=== PATIENT | male | born 1965 | race American Indian/Alaskan Native ===

== ENCOUNTER 2018-11-13 20:02 | Inpatient (IN) | payer OTHER ==
[2018-11-13] MEDS ORDERED: NACL 0.9% 1000 ML 1,000 ML IV ONE ×2 (20:42→21:02)
[2018-11-13] MEDS ORDERED: PROTONIX IV ONE (21:02)
--- NOTE | 2018-11-13 21:09 | Emergency Department Report ---
ED GI Bleed HPI - General Chief complaint: GI Bleed Stated complaint: ABD PAIN CHEST PAIN SOB VOMITTING Time Seen by Provider: 11/13/18 21:01 Source: patient Mode of arrival: Ambulatory Limitations: No Limitations - History of Present Illness Initial comments: Mr. Han is a 53 yo male with hx of HTN and GI bleed requiring endoscopy at [facility] 5-6 years ago presents with severe sharp central abdominal pain radiating to right chest. Has had dark tarry stools since this morning. Takes BC powder twice a week for chronic headache. Chest pain occurs upon movement and exertion with lightheadedness and dyspnea. MD complaint: melena, other (dark tarry stools) -: This morning Location: epigastric Radiation: none Severity scale (0 -10): 10 Quality: sharp Consistency: constant Improves with: none Worsens with: none Context: history of GI bleed, other (no history of tobacco or alcohol use. He does use BC powder OTC med at least twice a week) Associated Symptoms: abdominal pain, malaise, shortness of breath, other (chest pain) - Related Data Allergies Allergy/AdvReac Type Severity Reaction Status Date / Time No Known Allergies Allergy Verified 01/02/16 20:27 ED Review of Systems ROS: Stated complaint: ABD PAIN CHEST PAIN SOB VOMITTING Other details as noted in HPI Comment: All other systems reviewed and negative Constitutional: malaise. denies: fever Respiratory: shortness of breath Cardiovascular: chest pain Gastrointestinal: abdominal pain ED Past Medical Hx - Past Medical History Previous Medical History?: Yes Hx Hypertension: Yes Additional medical history: stomach ulcer / back pain - Surgical History Additional Surgical History: left shoulder, abdominal surgery. 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 Absent: respiratory distress, wheezes, rales, rhonchi - Cardiovascular Cardiovascular Exam: Present: normal rhythm, tachycardia, normal heart sounds. Absent: systolic murmur, diastolic murmur, rubs, gallop - GI/Abdominal GI/Abdominal exam: Present: soft, normal bowel sounds. Absent: distended, tenderness, guarding, rebound - Rectal Rectal exam: Present: normal rectal tone, heme (+) stool, black stool, other (melena) - Extremities Exam Extremities exam: Present: normal inspection - Back Exam Back exam: Present: normal inspection - Neurological Exam Neurological exam: Present: alert, oriented X3 - Psychiatric Psychiatric exam: Present: normal affect, normal mood - Skin Skin exam: Present: warm, dry, intact, normal color. Absent: rash ED Course Vital Signs 11/13/18 11/13/18 11/13/18 20:31 20:39 20:56 Temperature 98.8 F 98.8 F Pulse Rate 138 H 140 H 129 H Respiratory 18 18 18 Rate Blood Pressure 154/105 154/106 Blood Pressure 176/128 [Left] O2 Sat by Pulse 100 100 99 Oximetry 11/13/18 11/13/18 11/13/18 21:00 21:16 21:30 Temperature Pulse Rate 155 H 102 H 112 H Respiratory 23 14 14 Rate Blood Pressure 176/128 174/129 168/107 Blood Pressure [Left] O2 Sat by Pulse 98 99 98 Oximetry 11/13/18 11/13/18 11/13/18 21:46 22:00 22:16 Temperature Pulse Rate 102 H 102 H 103 H Respiratory 16 16 15 Rate Blood Pressure 168/107 180/107 180/107 Blood Pressure [Left] O2 Sat by Pulse 99 99 98 Oximetry 11/13/18 11/13/18 11/13/18 22:30 22:46 23:00 Temperature Pulse Rate 130 H 101 H 105 H Respiratory 14 16 15 Rate Blood Pressure 180/107 180/107 180/107 Blood Pressure [Left] O2 Sat by Pulse 98 97 99 Oximetry 11/14/18 11/14/18 00:17 00:19 Temperature Pulse Rate 107 H Respiratory 14 Rate Blood Pressure 172/106 Blood Pressure [Left] O2 Sat by Pulse Oximetry - Reevaluation(s) Reevaluation #1: 11/13/18 22:27 After initial consultation, Mr. Han vomited 800 ml dark emesis, quickly filling emesis bag. Dr. Khan updated. Dr. Khan informed me watch for ivan hematemesis and large bowel movements. 11/13/18 22:34 ED Medical Decision Making - Lab Data Result diagrams: 11/13/18 21:02 11/13/18 21:02 - EKG Data 11/13/18 22:56 First EKG obtained 2014 Sinus tachycardia rate 140 beats a minute normal axis no ST elevation nonspecific T wave pattern no signs of ischemia 11/13/18 22:57 Second EKG obtained 2232 Sinus tachycardia rate 100 weeks normal axis normal intervals no T-wave changes from previous EKG - Radiology Data Radiology results: report reviewed likely chronic hydronephrosis on left side, with right and left renal calculus - Medical Decision Making Mr. Han presents with recurrent UBIB presumed to be caused by PUD. Extremely orthostatic and tachycardic. Dr. Khan GI specialist understood that Mr. Han is at risk for hemodynamic collapse. Consequently, Dr. Khan will arrange endoscopy first case in the morning. Hospitalist Dr. Roa is aware of patient's presentation. Two IV's placed. Protonix infusion with bolus initated. Has been hypertensive in the ED. Due to severe abdominal pain, CT obtained, no evidence of bowel performation or aortic abnormality, mild hydronephrosis seen, will need outpatient urology f/u Critical Care Time: Yes Critical care time in (mins) excluding proc time.: 40 Critical care attestation.: If time is entered above; I have spent that time in minutes in the direct care of this critically ill patient, excluding procedure time. 40 minutes of critical care time excluding procedures were used in the care of the patient. I was concerned for active hemorrhage severe tachycardia and pending cardiovascular collapse. Attention to the bedside immediately. I obtain history from both female companion caregiver and patient. I directed resuscitation. Ordered 2 IVs, IVF, T&C, protonix infusion and bolus. I requested outside records. Patient required multiple assessments and in terventions. I reviewed the electronic medical record. I spoke with consultants involved in the care of the patient. ED Disposition Clinical Impression: UGIB (upper gastrointestinal bleed) Disposition: OP ADMIT IP TO THIS HOSP Is pt being admited?: Yes Does the pt Need Aspirin: No Condition: Stable
[2018-11-13 21:16] LABS: Basophils % (Auto) 0.4 % (0.0-1.8); Hematocrit 33.6 % (35.5-45.6); Hemoglobin 11.2 gm/dl (11.8-15.2); Lymphocytes # (Auto) 2.7 K/mm3 (1.2-5.4); Lymphocytes % (Auto) 20.6 % (13.4-35.0); Mean Corpuscular HGB Conc 33 % (32-34); Mean Corpuscular Volume 91 fl (84-94); Monocytes # (Auto) 1.1 K/mm3 (0.0-0.8); Monocytes % (Auto) 8.3 % (0.0-7.3); Platelet Count 251 K/mm3 (140-440); Red Blood Count 3.67 M/mm3 (3.65-5.03)
[2018-11-13 21:36] LABS: Alanine Aminotransferase 17 units/L (7-56); Albumin 4.2 g/dL (3.9-5); BUN/Creatinine Ratio 35; Blood Urea Nitrogen 46 mg/dL (9-20); Calcium 9.6 mg/dL (8.4-10.2); Hemolysis Index 14
[2018-11-13] MEDS ORDERED: MORPHINE IV ONE (22:07)
[2018-11-13] MEDS ORDERED: ZOFRAN IV ONE (22:07)
[2018-11-13] MEDS ORDERED: AMBIEN PO PRN (22:35)
[2018-11-13] MEDS ORDERED: SODIUM CHLORIDE FLUSH SYRINGE 10 ML IV PRN (22:35)
[2018-11-13] MEDS ORDERED: NORMODYNE IV PRN (22:41)
--- NOTE | 2018-11-13 22:45 | Event Note ---
Date: 11/13/18 called for patient; has had 2 BM of melena earlier today, 1 in ER; currently getting fluids. NPO on PPI drip. Presentation consistent with UGIB, most likely PUD Fluid resuscitate, cont NPO and PPI drip, 2 large bore peripheral IV's. If hemodynamics worsen, or don't improve with aggressive fluid resuscitation, or patient with significant active clinical bleeding (significant hematemesis or multiple episodes of large amounts of melena) please call me and I will come in immediately for emergent endoscopy. Otherwise, patient is on for EGD first thing in the AM.
[2018-11-13] MEDS ORDERED: NACL 0.45% 500 ML IV SCH (23:00)
[2018-11-13] MEDS ORDERED: NACL 0.9% 1000 ML 1,000 ML IV SCH (23:00)
--- NOTE | 2018-11-13 23:20 | History and Physical Report ---
History of Present Illness Date of examination: 11/13/18 Date of admission: 11/13/18 23:06 Chief complaint: Passing bloody stool and vomiting blood History of present illness: Patient is a 53-year-old man with a history of GI bleed who presented to the ED on account of 1 week history of passage of black tarry stool. Today, he started having bloody emesis. He has associated generalized abdominal pain, headaches, lightheadedness, pleuritic chest pain, diaphoresis, palpitation, shortness of breath and chills without fever. No constipation, diarrhea, dysuria or frequency. No leg swelling, orthopnea or PND. In the ED, GI was consulted and he recommended EGD in a.m. He also stated that he can called for emergency EGD if patient's condition deteriorates Past History Past Medical History: hypertension, other (GI bleed, exact cause unknown) Past Surgical History: Other (right rotator cuff surgery) Social history: other (patient admits to occasional alcohol use but denies tobacco or illicit drug use) Family history: other (reviewed and noncontributory) Medications and Allergies Allergies Allergy/AdvReac Type Severity Reaction Status Date / Time No Known Allergies Allergy Verified 01/02/16 20:27 Active Meds: Active Medications Acetaminophen (Tylenol) 650 mg PO Q4H PRN PRN Reason: Pain MILD(1-3)/Fever >100.5/SALOMON Amlodipine Besylate (Norvasc) 10 mg PO QDAY GALE Carvedilol (Coreg) 25 mg PO BID GALE Sodium Chloride (Nacl 0.9% 1000 Ml) 1,000 mls @ 250 mls/hr IV ONCE ONE Stop: 11/14/18 00:41 Pantoprazole Sodium 80 mg/ (Sodium Chloride) 100 mls @ 10 mls/hr IV DIRECT GALE Sodium Chloride (Nacl 0.45%) 500 mls @ 75 mls/hr IV DIRECT GALE Labetalol HCl (Normodyne) 10 mg IV Q4H PRN PRN Reason: Blood Pressure Morphine Sulfate (Morphine) 2 mg IV Q4H PRN PRN Reason: Pain, Moderate (4-6) Ondansetron HCl (Zofran) 4 mg IV Q8H PRN PRN Reason: Nausea And Vomiting Sodium Chloride (Sodium Chloride Flush Syringe 10 Ml) 10 ml IV BID GALE Sodium Chloride (Sodium Chloride Flush Syringe 10 Ml) 10 ml IV PRN PRN PRN Reason: LINE FLUSH Zolpidem Tartrate (Ambien) 5 mg PO QHS PRN PRN Reason: Insomnia Review of Systems All systems: negative (except as documented in the HPI, all other systems were reviewed and negative) Exam - Constitutional Vitals: Temp Pulse Resp BP Pulse Ox 98.8 F 129 H 18 176/128 99 11/13/18 20:39 11/13/18 20:56 11/13/18 20:56 11/13/18 20:56 11/13/18 20:56 General appearance: Present: no acute distress, obese - EENT Eyes: Present: PERRL, EOM intact ENT: hearing intact, clear oral mucosa - Neck Neck: Present: supple, normal ROM - Respiratory Respiratory effort: normal Respiratory: bilateral: CTA - Cardiovascular Rhythm: regular (with tachycardia) Heart Sounds: Present: S1 & S2. Absent: rub, click - Extremities Extremities: No edema Peripheral Pulses: within normal limits - Abdominal General gastrointestinal: Present: soft, non-tender, non-distended, normal bowel sounds Male genitourinary: Present: deferred - Integumentary Integumentary: Present: clear, warm, dry - Musculoskeletal Musculoskeletal: gait normal, strength equal bilaterally - Psychiatric Psychiatric: appropriate mood/affect, intact judgment & insight - Neurologic Neurologic: CNII-XII intact, moves all extremities Results - Labs CBC & Chem 7: 11/13/18 21:02 11/13/18 21:02 Labs: Laboratory Last Values WBC 13.3 K/mm3 (4.5-11.0) H 11/13/18 21:02 RBC 3.67 M/mm3 (3.65-5.03) 11/13/18 21:02 Hgb 11.2 gm/dl (11.8-15.2) L 11/13/18 21:02 Hct 33.6 % (35.5-45.6) L 11/13/18 21:02 MCV 91 fl (84-94) 11/13/18 21:02 MCH 30 pg (28-32) 11/13/18 21:02 MCHC 33 % (32-34) 11/13/18 21:02 RDW 15.0 % (13.2-15.2) 11/13/18 21:02 Plt Count 251 K/mm3 (140-440) 11/13/18 21:02 Lymph % (Auto) 20.6 % (13.4-35.0) 11/13/18 21:02 [place] % (Auto) 8.3 % (0.0-7.3) H 11/13/18 21:02 Eos % (Auto) 0.0 % (0.0-4.3) 11/13/18 21:02 Baso % (Auto) 0.4 % (0.0-1.8) 11/13/18 21:02 Lymph # 2.7 K/mm3 (1.2-5.4) 11/13/18 21:02 [place] # 1.1 K/mm3 (0.0-0.8) H 11/13/18 21:02 Eos # 0.0 K/mm3 (0.0-0.4) 11/13/18 21:02 Baso # 0.0 K/mm3 (0.0-0.1) 11/13/18 21:02 Seg Neutrophils % 70.7 % (40.0-70.0) H 11/13/18 21:02 Seg Neutrophils # 9.4 K/mm3 (1.8-7.7) H 11/13/18 21:02 Sodium 144 mmol/L (137-145) 11/13/18 21:02 Potassium 4.4 mmol/L (3.6-5.0) 11/13/18 21:02 Chloride 109.0 mmol/L (98-107) H 11/13/18 21:02 Carbon Dioxide 23 mmol/L (22-30) 11/13/18 21:02 Anion Gap 16 mmol/L 11/13/18 21:02 BUN 46 mg/dL (9-20) H 11/13/18 21:02 Creatinine 1.3 mg/dL (0.8-1.5) 11/13/18 21:02 Estimated GFR > 60 ml/min 11/13/18 21:02 BUN/Creatinine Ratio 35 % 11/13/18 21:02 Glucose 138 mg/dL (75-100) H 11/13/18 21:02 POC Glucose 144 (70-105) H 11/13/18 21:00 Calcium 9.6 mg/dL (8.4-10.2) 11/13/18 21:02 Total Bilirubin 0.70 mg/dL (0.1-1.2) 11/13/18 21:02 AST 18 units/L (5-40) 11/13/18 21:02 ALT 17 units/L (7-56) 11/13/18 21:02 Alkaline Phosphatase 53 units/L (35-129) 11/13/18 21:02 Total Protein 7.1 g/dL (6.3-8.2) 11/13/18 21:02 Albumin 4.2 g/dL (3.9-5) 11/13/18 21:02 Albumin/Globulin Ratio 1.4 % 11/13/18 21:02 Lipase 30 units/L (13-60) 11/13/18 21:02 Assessment and Plan Assessment and plan: Upper GI bleed -On IV Protonix drip -H/H currently stable, will monitor every 6 hours -CT abdomen/pelvis pending -GI planning for EGD in a.m. Hypertension -Uncontrolled -On antihypertensives, will monitor SIRS, probably due to noninfectious cause -Urinalysis pending Hyperglycemia -We'll check hemoglobin A1c level DVT prophylaxis with SCD Disposition: Patient will be admitted to the stepdown unit. Discharge will depend on clinical course Time spent: 38 minutes
--- NOTE | 2018-11-13 23:54 | Cat Scan Report ---
PROCEDURE: CT ABDOMEN PELVIS W CON TECHNIQUE: Computerized axial tomography of the abdomen and pelvis was performed after the IV inject ion of iodinated nonionic contrast. CT DOSE LENGTH PRODUCT: mGycm HISTORY: epigastric pain UGIB COMPARISONS: None . FINDINGS: Liver, spleen, pancreas and bilateral adrenal glands are within normal limits. Multiple calculi are n oted in bilateral kidneys. Largest calculus in the right kidney measures 10 mm located in the upper p ortion without obstructive uropathy. Multiple cystic lesions are noted in bilateral kidneys largest m easuring 17 mm located in the midportion. 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 A 1 2 mm x 11 mm calculus is noted at the pelvoureteral junction of lower moiety with mild degree hydrone phrosis of lower collecting system. There is no duplication of the left ureter. Left ureter is of nor mal caliber. Urinary bladder is partially filled with normal outlines. Aorta is of normal caliber. Th ere is no free fluid or free air. Gallbladder is unremarkable. Small bowel loops are within normal li mits. Appendix is normal. There is spondylolysis of L5 with minimal degree spondylolisthesis at L5-S1 measuring about 1 to 2 mm. Vertebral height is normal. 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 An obstructive calculus is no marcio at the pelvo-ureteral junction of lower collecting system resulting in hydronephrosis of the lowe r collecting system. Multiple nonobstructive bilateral renal calculi L5 spondylolysis with minimal spondylolisthesis at L5-S1 This document is electronically signed by Rocco Rebollar MD., November 13 2018 11:52:47 PM ET
[2018-11-14] MEDS: COREG PO SCH ×3 (00:19→21:38)
[2018-11-14] MEDS: NORVASC PO SCH ×2 (00:36→21:38)
[2018-11-14] MEDS: MORPHINE IV PRN ×3 (01:34→16:10)
[2018-11-14] MEDS: ZOFRAN IV PRN ×2 (04:06→19:47)
[2018-11-14 06:06] LABS: Hematocrit 25.2 % (35.5-45.6); Hemoglobin 8.6 gm/dl (11.8-15.2); Mean Corpuscular HGB Conc 34 % (32-34); Mean Corpuscular Volume 90 fl (84-94); Platelet Count 175 K/mm3 (140-440); Red Blood Count 2.79 M/mm3 (3.65-5.03); Red Cell Distribution Width 15.1 % (13.2-15.2)
[2018-11-14] MEDS ORDERED: WATER FOR IRRIG STERILE IR ONE (06:50)
[2018-11-14] MEDS ORDERED: DIPRIVAN 10 MG/ML IV ONE ×2 (07:30)
[2018-11-14] MEDS ORDERED: XYLOCAINE 2% INFILTRATI ONE (07:30)
--- NOTE | 2018-11-14 08:02 | Gastroenterology Consultation ---
History of Present Illness - Reason for Consult Consult date: 11/14/18 GI Bleed Requesting physician: DENISE HOWARD - History of Present Illness Mr. Han is a pleasant 53 yo male with history of upper GI bleed a few years ago (he is not sure of the etiology of the bleed, just that they did endoscopy and "fixed a hole in my stomach that was bleeding"). Patient reports having black stool for the last few days, with 3 episodes of melena last night. He reported fatigue and weakness associated with this. Also reports few days of epigastric abdominal pain that is moderate, intermittent, lasts for hours, radiates to the entire abdomen, may be worse with eating, be tter with nothing, associated with weakness fatigue and melena and SOB and vomiting. Not improving yet. He reports using routinely OTC NSAIDs. Medication list reviewed and updated and listed below Past History Past Medical History: hypertension, other (GI bleed, exact cause unknown) Past Surgical History: Other (right rotator cuff surgery) Social history: other (patient admits to occasional alcohol use but denies tobacco or illicit drug use) Family history: other (no FH gastric ulcers or gastric malignancy or GI bleeding) Medications and Allergies Allergies Allergy/AdvReac Type Severity Reaction Status Date / Time codeine Allergy Mild Itching Unverified 11/14/18 08:02 Active Meds: Active Medications Acetaminophen (Tylenol) 650 mg PO Q4H PRN PRN Reason: Pain MILD(1-3)/Fever >100.5/SALOMON Amlodipine Besylate (Norvasc) 10 mg PO QDAY@2200 [facility] Last Admin: 11/14/18 00:36 Dose: 10 mg Documented by: Carvedilol (Coreg) 25 mg PO BID [facility] Last Admin: 11/14/18 00:19 Dose: 25 mg Documented by: Pantoprazole Sodium 80 mg/ (Sodium Chloride) 100 mls @ 10 mls/hr IV DIRECT [facility] Sodium Chloride (Nacl 0.9% 1000 Ml) 1,000 mls @ 50 mls/hr IV DIRECT [facility] Labetalol HCl (Normodyne) 10 mg IV Q4H PRN PRN Reason: Blood Pressure Morphine Sulfate (Morphine) 2 mg IV Q4H PRN PRN Reason: Pain, Moderate (4-6) Last Admin: 11/14/18 06:14 Dose: 2 mg Documented by: Ondansetron HCl (Zofran) 4 mg IV Q8H PRN PRN Reason: Nausea And Vomiting Last Admin: 11/14/18 04:06 Dose: 4 mg Documented by: Sodium Chloride (Sodium Chloride Flush Syringe 10 Ml) 10 ml IV BID GALE Sodium Chloride (Sodium Chloride Flush Syringe 10 Ml) 10 ml IV PRN PRN PRN Reason: LINE FLUSH Zolpidem Tartrate (Ambien) 5 mg PO QHS PRN PRN Reason: Insomnia Review of Systems - Review of Systems All systems: negative (10 systems reviewed and neg except as listed above in the HPI) Exam - Constitutional Vital Signs: Temp Pulse Resp BP Pulse Ox 98.5 F 79 13 136/87 16 L 11/14/18 07:25 11/14/18 07:25 11/14/18 07:25 11/14/18 07:25 11/14/18 07:25 General appearance: no acute distress - EENT Eyes: PERRL ENT: hearing intact - Neck Neck: supple - Respiratory Respiratory effort: normal Respiratory: bilateral: CTA - Cardiovascular Rhythm: regular Heart Sounds: Present: S1 & S2 - Gastrointestinal General gastrointestinal: Present: soft, normal bowel sounds Rectal Exam: deferred - Integumentary Integumentary: Present: warm, dry - Musculoskeletal Musculoskeletal: normal - Neurologic Neurological: alert and oriented x3 - Psychiatric Psychiatric: appropriate mood/affect - Labs CBC & Chem 7: 11/14/18 04:44 11/13/18 21:02 Lab Results: Laboratory Results - last 24 hr 11/13/18 11/13/18 11/13/18 21:00 21:02 21:02 WBC 13.3 H RBC 3.67 Hgb 11.2 L Hct 33.6 L MCV 91 MCH 30 MCHC 33 RDW 15.0 Plt Count 251 Lymph % (Auto) 20.6 [place] % (Auto) 8.3 H Eos % (Auto) 0.0 Baso % (Auto) 0.4 Lymph # 2.7 [place] # 1.1 H Eos # 0.0 Baso # 0.0 Seg Neutrophils % 70.7 H Seg Neutrophils # 9.4 H Sodium 144 Potassium 4.4 Chloride 109.0 H Carbon Dioxide 23 Anion Gap 16 BUN 46 H Creatinine 1.3 Estimated GFR > 60 BUN/Creatinine Ratio 35 Glucose 138 H POC Glucose 144 H Hemoglobin A1c Calcium 9.6 Total Bilirubin 0.70 AST 18 ALT 17 Alkaline Phosphatase 53 Total Protein 7.1 Albumin 4.2 Albumin/Globulin Ratio 1.4 Lipase 30 11/14/18 11/14/18 04:44 04:44 WBC 10.1 RBC 2.79 L Hgb 8.6 L Hct 25.2 L D MCV 90 MCH 31 MCHC 34 RDW 15.1 Plt Count 175 Lymph % (Auto) [place] % (Auto) Eos % (Auto) Baso % (Auto) Lymph # [place] # Eos # Baso # Seg Neutrophils % Seg Neutrophils # Sodium Potassium Chloride Carbon Dioxide Anion Gap BUN Creatinine Estimated GFR BUN/Creatinine Ratio Glucose POC Glucose Hemoglobin A1c 5.2 Calcium Total Bilirubin AST ALT Alkaline Phosphatase Total Protein Albumin Albumin/Globulin Ratio Lipase Assessment and Plan Regarding the problem list below, patient at high risk for PUD and active upper GI bleed, therefore urgent upper endoscopy is indicated and will be performed, continue PPI drip and NPO status until final recommendations based upon EGD results. Full Differential diagnosis includes gastric or duodenal ulcer, malignancy, AVM, Dieulafoy, etc. - Patient Problems (1) UGIB (upper gastrointestinal bleed) Current Visit: Yes Status: Acute (2) Melena Current Visit: Yes Status: Acute (3) Gastrointestinal hemorrhage with melena Current Visit: Yes Status: Acute (4) History of peptic ulcer disease Current Visit: Yes Status: Acute
--- NOTE | 2018-11-14 08:16 | Operative Report ---
Operative Report Operative Report: DATE OF SERVICE: 11/14/2018 SURGEON: Clifford Khan MD EGD with biopsy and endoclip placement REPORT PREOPERATIVE DIAGNOSIS and POSTOPERATIVE DIAGNOSIS: upper GI bleed, melena ESTIMATED BLOOD LOSS: minimal DESCRIPTION OF PROCEDURE: A high-resolution EGD scope was passed through the oropharynx, esophagus, stomach, and second portion of duodenum. The scope was carefully withdrawn. Retroflexion was performed in the stomach. At the end of the procedure, the scope was cleaned using normal technique. Vital signs monitored continuously throughout. SEDATION: Provided by Anesthesiology Services. COMPLICATIONS: None. FINDINGS: * Normal duodenal * 2 gastric ulcers in the incisura. One was superficial, small (3mm) and clean based. The second was moderately cratered, about 8mm in diameter, and a red raised lesion was present suspicious for a visible vessel. Therefore given the high risk lesion the decision was made to place endoclips to close the ulcer and decrease the risk for rebleeding. 2 Clips were successfully placed over the ulcer to close it. * Very small amount of old heme present in the stomach. * Biopsies were taken to rule out H. Pylori infection. A total of 6 biopsies were taken, 2 from the antrum, 1 from the incisura, 2 from the body. * Z line was irregular and located at 42cm from the incisors * Remainder of the exam was normal RECOMMENDATIONS: * Complete 48 hours of PPI drip, and then as long as no more bleeding and Hgb stable please transition to twice daily oral PPI (such as protonix 40mg PO twice daily) and discharge with outpatient followup and repeat EGD 6 weeks to ensure healing of the ulcer * Avoid all NSAIDs in the future * Follow up pathology results (sensitivity of biopsy for HP in the setting of recent GI bleed is decreased, so may need secondary testing to confirm HP negative at the follow up office visit) * Start on clears today, by dinnertime if Hgb stable and no overt bleeding can begin to advance diet as tolerated. * Please call back for major (over 2g) drop in Hgb or significant overt GI bleeding
--- NOTE | 2018-11-14 08:46 | Anesthesia Consultation ---
Anesthesia Consult and Med Hx Date of service: 11/14/18 - Airway Anesthetic Teeth Evaluation: Good ROM Head & Neck: Adequate Mental/Hyoid Distance: Adequate Mallampati Class: Class II Intubation Access Assessment: Probably Good - Pulmonary Exam CTA: Yes - Cardiac Exam Cardiac Exam: RRR - Pre-Operative Health Status ASA Pre-Surgery Classification: ASA3 Proposed Anesthetic Plan: MAC - Pulmonary Hx Smoking: No Hx Asthma: No COPD: No Hx Pneumonia: Yes Hx Sleep Apnea: Yes (snoring) - Cardiovascular System Hx Hypertension: Yes Hx Heart Attack/AMI: No Hx Cardia Arrhythmia: No - Central Nervous System Hx Neuromuscular Disorder: No CVA: No Hx Psychiatric Problems: No - Gastrointestinal Hx Gastroesophageal Reflux Disease: No - Endocrine Hx End Stage Renal Disease: No Hx Liver Disease: No Hx Insulin Dependent Diabetes: No Hx Non-Insulin Dependent Diabetes: No Hx Thyroid Disease: No - Hematic Hx Anemia: Yes Hx Sickle Cell Disease: No - Other Systems Hx Obesity: Yes - Additional Comments Anesthesia Medical History Comments: No GAC, No FHAC
--- NOTE | 2018-11-14 08:46 | Anesthesia Day of Surgery ---
Anesthesia Day of Surgery - Day of Surgery Patient Examined: Yes Patient H&P Reviewed: Yes Patient is NPO: Yes Beta Blockers: No (n/a) Cardiac Clearance: No (n/a) Pulmonary Clearance: No (n/a)
[2018-11-14] MEDS: TYLENOL PO PRN ×2 (09:09→21:35)
[2018-11-14 09:10] LABS: Hematocrit 25.6 % (35.5-45.6); Hemoglobin 8.5 gm/dl (11.8-15.2)
[2018-11-14 09:59] LABS: Bacteria,Urine 1+ /HPF (Negative); Bilirubin,Urine NEG (Negative); Blood,Urine MOD (Negative); Color,Urine Straw (Yellow); Mucus,Urine FEW /HPF; Protein,Urine <15 mg/dL mg/dL (Negative); Urobilinogen,Urine < 2.0 mg/dL (<2.0)
[2018-11-14] MEDS: PROTONIX 80 MG in NACL 0.9% 100 ML IV SCH ×2 (10:37→22:14)
[2018-11-14] MEDS ORDERED: NACL 0.9% 1000 ML 1,000 ML ONE (11:06)
[2018-11-14] MEDS: NACL 0.9% 1000 ML 1,000 ML IV SCH (13:11)
--- NOTE | 2018-11-14 15:39 | Progress Note ---
Assessment and Plan Patient is a 53-year-old man with a history of GI bleed who presented to the ED on account of 1 week history of passage of black tarry stool. Today, he started having bloody emesis. He has associated generalized abdominal pain, headaches, lightheadedness, pleuritic chest pain, diaphoresis, palpitation, shortness of breath and chills without fever. No constipation, diarrhea, dysuria or frequency. No leg swelling, orthopnea or PND. In the ED, GI was consulted and he recommended EGD. Patient remains hemodynamically stable Upper GI bleed - NPO -On IV Protonix drip -H/H q 6 hrs -GI planning for EGD Renal calculi Pelvic ureteric junction obstruction Also Multiple nonsbstructing renal calculi Duplicate collecting system Urology consult Hydronephrosis of the lower pole -secondary to ureteric calculi Hypertension -Uncontrolled -On antihypertensives, - will monitor SIRS, probably due to noninfectious cause -Urinalysis pending UTI Urine Cx Commence pt in Rocephine imperically Hyperglycemia - A1c 5.2 DVT prophylaxis with SCD Subjective Date of service: 11/14/18 Principal diagnosis: UGI bleeding, SIRS, HTN Interval history: Pt seen and examined. Still having dark stool. No abdominal pain. Objective - Exam Narrative Exam: Constitutional: Well-nourished well-developed. In no distress Head: Normocephalic atraumatic Eyes: Pupils are equal round and reactive to light Nose: No enlarged turbinates, no septal deviation. Mouth: Moist mucous membranes. Neck: Supple no thyromegaly. No bruit. No JVD Heart: Regular rate and rhythm, S1-S2 normal. No rubs murmurs or gallop Lungs: Clear to auscultation bilaterally. no rales or rhonchi Abdomen: Soft, nontender. Bowel sound are present. Extremities: No edema, no cyanosis, no clubbing. Neuro: Alert oriented Oriented x3. No focal sensory or motor deficit. Skin: No rashes or hyperpigmented spots Musculoskeletal system: No joint pain or swelling Hematological: No petechia or subcutanous hemorrhages. Immunological: No multiple septic spots on the skin Lymphatic: No generalized lymphadenopathy Psychiatry: Euthymic. Calm. - Constitutional Vitals: Vital Signs - 12hr 11/14/18 11/14/18 11/14/18 03:40 03:50 04:00 Temperature 98.4 F Pulse Rate 73 75 71 Pulse Rate [ From Monitor] Respiratory 14 14 15 Rate Blood Pressure 153/87 153/87 153/87 O2 Sat by Pulse 97 95 98 Oximetry 11/14/18 11/14/18 11/14/18 04:10 04:20 04:30 Temperature Pulse Rate 73 73 81 Pulse Rate [ From Monitor] Respiratory 13 12 18 Rate Blood Pressure 113/62 113/62 113/62 O2 Sat by Pulse 98 96 98 Oximetry 11/14/18 11/14/18 11/14/18 04:40 04:50 05:00 Temperature Pulse Rate 77 73 73 Pulse Rate [ From Monitor] Respiratory 12 13 13 Rate Blood Pressure 113/62 113/62 122/71 O2 Sat by Pulse 97 96 98 Oximetry 11/14/18 11/14/18 11/14/18 05:10 05:20 05:30 Temperature Pulse Rate 81 78 76 Pulse Rate [ From Monitor] Respiratory 14 13 12 Rate Blood Pressure 122/71 122/71 122/71 O2 Sat by Pulse 96 95 97 Oximetry 11/14/18 11/14/18 11/14/18 05:40 05:50 06:00 Temperature Pulse Rate 80 70 76 Pulse Rate [ From Monitor] Respiratory 14 12 13 Rate Blood Pressure 122/71 122/71 122/71 O2 Sat by Pulse 98 97 98 Oximetry 11/14/18 11/14/18 11/14/18 06:10 06:20 06:30 Temperature Pulse Rate 77 84 81 Pulse Rate [ From Monitor] Respiratory 14 14 12 Rate Blood Pressure 121/77 121/77 121/77 O2 Sat by Pulse 98 96 96 Oximetry 11/14/18 11/14/18 11/14/18 06:40 06:50 07:00 Temperature Pulse Rate 69 70 74 Pulse Rate [ From Monitor] Respiratory 13 14 13 Rate Blood Pressure 121/77 121/77 125/92 O2 Sat by Pulse 96 97 100 Oximetry 11/14/18 11/14/18 11/14/18 07:21 07:25 07:59 Temperature 98.5 F 98.5 F 98.9 F Pulse Rate 79 79 82 Pulse Rate [ From Monitor] Respiratory 13 14 Rate Blood Pressure 136/87 136/87 103/51 O2 Sat by Pulse 16 L 16 L 99 Oximetry 11/14/18 11/14/1819 08:00 08:14 08:29 Temperature 98.6 F Pulse Rate 82 88 Pulse Rate [ 70 From Monitor] Respiratory 13 13 10 L Rate Blood Pressure 109/61 115/70 O2 Sat by Pulse 99 96 98 Oximetry 11/14/18 11/14/18 11/14/18 08:46 08:50 09:00 Temperature Pulse Rate 76 74 72 Pulse Rate [ From Monitor] Respiratory 17 14 19 Rate Blood Pressure 109/73 109/73 118/68 O2 Sat by Pulse 99 97 99 Oximetry 11/14/18 11/14/18 11/14/18 09:10 09:20 09:30 Temperature Pulse Rate 78 Pulse Rate [ From Monitor] Respiratory 16 Rate Blood Pressure 125/92 125/92 125/92 O2 Sat by Pulse 99 99 100 Oximetry 11/14/18 11/14/18 11/14/18 09:40 09:50 10:00 Temperature Pulse Rate 87 Pulse Rate [ From Monitor] Respiratory Rate Blood Pressure 125/92 125/92 130/79 O2 Sat by Pulse 97 99 99 Oximetry 11/14/18 11/14/18 11/14/18 10:10 10:20 10:30 Temperature Pulse Rate Pulse Rate [ From Monitor] Respiratory Rate Blood Pressure 130/79 130/79 130/79 O2 Sat by Pulse 100 100 100 Oximetry 11/14/18 11/14/18 11/14/18 10:40 10:50 11:00 Temperature Pulse Rate Pulse Rate [ From Monitor] Respiratory Rate Blood Pressure 130/79 130/79 119/76 O2 Sat by Pulse 98 98 99 Oximetry 11/14/18 11/14/18 11/14/18 11:10 11:20 11:30 Temperature Pulse Rate Pulse Rate [ From Monitor] Respiratory Rate Blood Pressure 119/76 119/76 119/76 O2 Sat by Pulse 96 97 100 Oximetry 11/14/18 11/14/18 11/14/18 11:40 11:50 12:00 Temperature 98.5 F Pulse Rate Pulse Rate [ 71 From Monitor] Respiratory 11 L Rate Blood Pressure 119/76 119/76 119/76 O2 Sat by Pulse 98 100 100 Oximetry 11/14/18 11/14/18 11/14/18 12:10 12:20 12:30 Temperature Pulse Rate Pulse Rate [ From Monitor] Respiratory Rate Blood Pressure 127/75 127/75 127/75 O2 Sat by Pulse 100 98 99 Oximetry 11/14/18 11/14/18 11/14/18 12:40 12:50 13:00 Temperature Pulse Rate 87 69 64 Pulse Rate [ From Monitor] Respiratory 16 14 13 Rate Blood Pressure 127/75 127/75 116/67 O2 Sat by Pulse 97 97 97 Oximetry 11/14/18 11/14/18 11/14/18 13:10 13:20 13:30 Temperature Pulse Rate 76 69 67 Pulse Rate [ From Monitor] Respiratory 14 14 14 Rate Blood Pressure 116/67 116/67 116/67 O2 Sat by Pulse 98 100 98 Oximetry 11/14/18 11/14/18 11/14/18 13:40 13:50 14:00 Temperature Pulse Rate 65 70 70 Pulse Rate [ From Monitor] Respiratory 15 12 15 Rate Blood Pressure 116/67 116/67 127/76 O2 Sat by Pulse 98 100 98 Oximetry 11/14/18 14:10 Temperature Pulse Rate 70 Pulse Rate [ From Monitor] Respiratory 15 Rate Blood Pressure 127/76 O2 Sat by Pulse 100 Oximetry - Labs CBC & Chem 7: 11/14/18 08:51 11/13/18 21:02 Labs: Abnormal lab results 11/13/18 11/13/18 11/13/18 Range/Units 21:00 21:02 21:02 WBC 13.3 H (4.5-11.0) K/mm3 RBC (3.65-5.03) M/mm3 Hgb 11.2 L (11.8-15.2) gm/dl Hct 33.6 L (35.5-45.6) % [place] % (Auto) 8.3 H (0.0-7.3) % [place] # 1.1 H (0.0-0.8) K/mm3 Seg Neutrophils % 70.7 H (40.0-70.0) % Seg Neutrophils # 9.4 H (1.8-7.7) K/mm3 Chloride 109.0 H (98-107) mmol/L BUN 46 H (9-20) mg/dL Glucose 138 H (75-100) mg/dL POC Glucose 144 H (70-105) Urine WBC (Auto) (0.0-6.0) /HPF 11/14/18 11/14/18 11/14/18 Range/Units 04:44 08:51 09:25 WBC (4.5-11.0) K/mm3 RBC 2.79 L (3.65-5.03) M/mm3 Hgb 8.6 L 8.5 L (11.8-15.2) gm/dl Hct 25.2 L D 25.6 L (35.5-45.6) % [place] % (Auto) (0.0-7.3) % [place] # (0.0-0.8) K/mm3 Seg Neutrophils % (40.0-70.0) % Seg Neutrophils # (1.8-7.7) K/mm3 Chloride (98-107) mmol/L BUN (9-20) mg/dL Glucose (75-100) mg/dL POC Glucose (70-105) Urine WBC (Auto) 15.0 H (0.0-6.0) /HPF
[2018-11-14] MEDS: SODIUM CHLORIDE FLUSH SYRINGE 10 ML IV SCH (16:11)
--- NOTE | 2018-11-14 18:19 | Progress Note ---
Assessment and Plan dictated rec perc when medically stable large stone other option is stent spoke with IR severe anemia Subjective Date of service: 11/14/18 Principal diagnosis: UGI bleeding, SIRS, HTN Objective - Constitutional Vitals: Vital Signs - 12hr 11/14/18 11/14/18 11/14/18 06:20 06:30 06:40 Temperature Pulse Rate 84 81 69 Pulse Rate [ From Monitor] Respiratory 14 12 13 Rate Blood Pressure 121/77 121/77 121/77 O2 Sat by Pulse 96 96 96 Oximetry 11/14/18 11/14/18 11/14/18 06:50 07:00 07:21 Temperature 98.5 F Pulse Rate 70 74 79 Pulse Rate [ From Monitor] Respiratory 14 13 Rate Blood Pressure 121/77 125/92 136/87 O2 Sat by Pulse 97 100 16 L Oximetry 11/14/18 11/14/18 11/14/18 07:25 07:59 08:00 Temperature 98.5 F 98.9 F 98.6 F Pulse Rate 79 82 Pulse Rate [ 70 From Monitor] Respiratory 13 14 13 Rate Blood Pressure 136/87 103/51 O2 Sat by Pulse 16 L 99 99 Oximetry 11/14/18 11/14/18 11/14/18 08:14 08:29 08:46 Temperature Pulse Rate 82 88 76 Pulse Rate [ From Monitor] Respiratory 13 10 L 17 Rate Blood Pressure 109/61 115/70 109/73 O2 Sat by Pulse 96 98 99 Oximetry 11/14/18 11/14/18 11/14/18 08:50 09:00 09:10 Temperature Pulse Rate 74 72 78 Pulse Rate [ From Monitor] Respiratory 14 19 16 Rate Blood Pressure 109/73 118/68 125/92 O2 Sat by Pulse 97 99 99 Oximetry 11/14/18 11/14/18 11/14/18 09:20 09:30 09:40 Temperature Pulse Rate Pulse Rate [ From Monitor] Respiratory Rate Blood Pressure 125/92 125/92 125/92 O2 Sat by Pulse 99 100 97 Oximetry 11/14/18 11/14/18 11/14/18 09:50 10:00 10:10 Temperature Pulse Rate 87 Pulse Rate [ From Monitor] Respiratory Rate Blood Pressure 125/92 130/79 130/79 O2 Sat by Pulse 99 99 100 Oximetry 11/14/18 11/14/18 11/14/18 10:20 10:30 10:40 Temperature Pulse Rate Pulse Rate [ From Monitor] Respiratory Rate Blood Pressure 130/79 130/79 130/79 O2 Sat by Pulse 100 100 98 Oximetry 11/14/18 11/14/18 11/14/18 10:50 11:00 11:10 Temperature Pulse Rate Pulse Rate [ From Monitor] Respiratory Rate Blood Pressure 130/79 119/76 119/76 O2 Sat by Pulse 98 99 96 Oximetry 11/14/18 11/14/18 11/14/18 11:20 11:30 11:40 Temperature Pulse Rate Pulse Rate [ From Monitor] Respiratory Rate Blood Pressure 119/76 119/76 119/76 O2 Sat by Pulse 97 100 98 Oximetry 11/14/18 11/14/18 11/14/18 11:50 12:00 12:10 Temperature 98.5 F Pulse Rate Pulse Rate [ 71 From Monitor] Respiratory 11 L Rate Blood Pressure 119/76 119/76 127/75 O2 Sat by Pulse 100 100 100 Oximetry 11/14/18 11/14/18 11/14/18 12:20 12:30 12:40 Temperature Pulse Rate 87 Pulse Rate [ From Monitor] Respiratory 16 Rate Blood Pressure 127/75 127/75 127/75 O2 Sat by Pulse 98 99 97 Oximetry 11/14/18 11/14/18 11/14/18 12:50 13:00 13:10 Temperature Pulse Rate 69 64 76 Pulse Rate [ From Monitor] Respiratory 14 13 14 Rate Blood Pressure 127/75 116/67 116/67 O2 Sat by Pulse 97 97 98 Oximetry 11/14/18 11/14/18 11/14/18 13:20 13:30 13:40 Temperature Pulse Rate 69 67 65 Pulse Rate [ From Monitor] Respiratory 14 14 15 Rate Blood Pressure 116/67 116/67 116/67 O2 Sat by Pulse 100 98 98 Oximetry 11/14/18 11/14/18 11/14/18 13:50 14:00 14:10 Temperature Pulse Rate 70 70 70 Pulse Rate [ From Monitor] Respiratory 12 15 15 Rate Blood Pressure 116/67 127/76 127/76 O2 Sat by Pulse 100 98 100 Oximetry 11/14/18 11/14/18 11/14/18 14:20 14:30 14:40 Temperature Pulse Rate 76 72 73 Pulse Rate [ From Monitor] Respiratory 16 16 17 Rate Blood Pressure 127/76 127/76 127/76 O2 Sat by Pulse 100 99 100 Oximetry 11/14/18 11/14/18 11/14/18 14:50 15:00 15:10 Temperature Pulse Rate 76 78 74 Pulse Rate [ From Monitor] Respiratory 15 16 14 Rate Blood Pressure 127/76 105/59 105/59 O2 Sat by Pulse 99 99 97 Oximetry 11/14/18 11/14/18 11/14/18 15:20 15:30 15:40 Temperature Pulse Rate 81 65 71 Pulse Rate [ From Monitor] Respiratory 16 15 14 Rate Blood Pressure 105/59 105/59 105/59 O2 Sat by Pulse 97 100 100 Oximetry 11/14/18 11/14/18 11/14/18 15:50 16:00 16:10 Temperature 98.6 F Pulse Rate 64 65 66 Pulse Rate [ 73 From Monitor] Respiratory 15 14 15 Rate Blood Pressure 105/59 105/59 126/77 O2 Sat by Pulse 100 100 99 Oximetry 11/14/18 11/14/18 11/14/18 16:20 16:30 16:40 Temperature Pulse Rate 65 66 72 Pulse Rate [ From Monitor] Respiratory 13 15 13 Rate Blood Pressure 126/77 126/77 126/77 O2 Sat by Pulse 99 99 99 Oximetry 11/14/18 16:50 Temperature Pulse Rate 70 Pulse Rate [ From Monitor] Respiratory 13 Rate Blood Pressure 126/77 O2 Sat by Pulse 100 Oximetry General appearance: Present: no acute distress - Neck Neck: supple Extremities: no ischemia - Gastrointestinal General gastrointestinal: Present: soft, non-tender - Genitourinary Male genitourinary: normal - Labs CBC & Chem 7: 11/14/18 08:51 11/13/18 21:02 Labs: Abnormal lab results 11/13/18 11/13/18 11/13/18 Range/Units 21:00 21:02 21:02 WBC 13.3 H (4.5-11.0) K/mm3 RBC (3.65-5.03) M/mm3 Hgb 11.2 L (11.8-15.2) gm/dl Hct 33.6 L (35.5-45.6) % [place] % (Auto) 8.3 H (0.0-7.3) % [place] # 1.1 H (0.0-0.8) K/mm3 Seg Neutrophils % 70.7 H (40.0-70.0) % Seg Neutrophils # 9.4 H (1.8-7.7) K/mm3 Chloride 109.0 H (98-107) mmol/L BUN 46 H (9-20) mg/dL Glucose 138 H (75-100) mg/dL POC Glucose 144 H (70-105) Urine WBC (Auto) (0.0-6.0) /HPF 11/14/18 11/14/18 11/14/18 Range/Units 04:44 08:51 09:25 WBC (4.5-11.0) K/mm3 RBC 2.79 L (3.65-5.03) M/mm3 Hgb 8.6 L 8.5 L (11.8-15.2) gm/dl Hct 25.2 L D 25.6 L (35.5-45.6) % [place] % (Auto) (0.0-7.3) % [place] # (0.0-0.8) K/mm3 Seg Neutrophils % (40.0-70.0) % Seg Neutrophils # (1.8-7.7) K/mm3 Chloride (98-107) mmol/L BUN (9-20) mg/dL Glucose (75-100) mg/dL POC Glucose (70-105) Urine WBC (Auto) 15.0 H (0.0-6.0) /HPF Medications & Allergies - Medications Allergies/Adverse Reactions: Allergies codeine Allergy (Mild, Verified 11/14/18 16:09) Itching Home Medications: Home Medications Medication Instructions Recorded Confirmed Last Taken Type Unobtainable 11/14/18 11/14/18 Unknown History Active Medications: Generic Name Dose Route Start Last Admin Trade Name Freq PRN Reason Stop Dose Admin Acetaminophen 650 mg 11/13/18 22:35 11/14/18 09:09 Tylenol PO 650 mg Q4H PRN Administration Pain MILD(1-3)/Fever >100.5/SALOMON Amlodipine Besylate 10 mg 11/14/18 00:30 11/14/18 00:36 Norvasc PO 10 mg QDAY@2200 GALE Administration Carvedilol 25 mg 11/13/18 23:00 11/14/18 09:10 Coreg PO 25 mg BID GALE Administration Pantoprazole Sodium 80 mg/ 100 mls @ 10 mls/hr 11/13/18 22:00 11/14/18 10:37 Sodium Chloride IV 11/15/18 21:59 8 mg/hr DIRECT GALE 10 mls/hr Administration 8 MG/HR Sodium Chloride 1,000 mls @ 50 mls/hr 11/14/18 07:00 11/14/18 13:11 Nacl 0.9% 1000 Ml IV 50 mls/hr DIRECT GALE Administration Ceftriaxone Sodium 1 gm in 50 mls @ 100 mls/hr 11/15/18 10:00 Rocephin/Ns 1 Gm/50 Ml IV Q24HR GALE Protocol Labetalol HCl 10 mg 11/13/18 22:41 Normodyne IV Q4H PRN Blood Pressure Morphine Sulfate 2 mg 11/13/18 22:35 11/14/18 16:10 Morphine IV 2 mg Q4H PRN Administration Pain, Moderate (4-6) Ondansetron HCl 4 mg 11/13/18 22:35 11/14/18 04:06 Zofran IV 4 mg Q8H PRN Administration Nausea And Vomiting Pantoprazole Sodium 40 mg 11/16/18 10:00 Protonix PO BID GALE Sodium Chloride 10 ml 11/14/18 10:00 11/14/18 16:11 Sodium Chloride Flush Syringe 10 Ml IV 10 ml BID GALE Administration Sodium Chloride 10 ml 11/13/18 22:35 Sodium Chloride Flush Syringe 10 Ml IV PRN PRN LINE FLUSH Zolpidem Tartrate 5 mg 11/13/18 22:35 Ambien PO QHS PRN Insomnia
--- NOTE | 2018-11-15 02:55 | Consultation ---
HISTORY OF PRESENT ILLNESS: The patient is a gentleman with a large obstructing stone in lower pole moiety and a partially duplex left collecting system. He has [id number] hydronephrosis, but no significant pain. He was admitted for GI bleeding. He has known about the stone for a while. PAST MEDICAL HISTORY: As mentioned above. SOCIAL HISTORY: Negative. FAMILY HISTORY: Negative. REVIEW OF SYSTEMS: Midabdominal pain. PHYSICAL EXAMINATION: GENERAL: He is awake. He is in no distress. ABDOMEN: Soft, nondistended. He has some chest keloids. There is no real CVA tenderness. GENITALIA: Testes descended bilaterally. No irregularities. RECTAL: Digital rectal is not done. He is in the IMCU and this can be done as an outpatient. IMPRESSION: Left 12 x 12 mm stone in lower pole moiety, possible stenting, possible percutaneous nephrostomy. It is not an emergency; pending GI and him being stable, we will consider a percutaneous nephrostomy. He is anemic. We may want to wait until he is stable GI davis since he is not septic before we manipulate him just in case he has some renal bleeding as well. We will consult with GI and Medicine before we do anything about this stone as it has been there for a while. JOB# [id number] BEREKET/DEBORAH
[2018-11-15] MEDS: TYLENOL PO PRN (07:07)
[2018-11-15] MEDS: SODIUM CHLORIDE FLUSH SYRINGE 10 ML IV SCH ×3 (07:07→22:33)
[2018-11-15] MEDS: NACL 0.9% 1000 ML 1,000 ML IV SCH (07:09)
[2018-11-15] MEDS: PROTONIX 80 MG in NACL 0.9% 100 ML IV SCH (09:36)
[2018-11-15] MEDS: COREG PO SCH ×2 (10:35→22:31)
[2018-11-15] MEDS: ROCEPHIN/NS 1 GM/50 ML 1 GM/50 ML BAG IV SCH (10:36)
[2018-11-15] MEDS: MORPHINE IV PRN ×2 (10:40→20:07)
--- NOTE | 2018-11-15 11:20 | Consultation ---
History of Present Illness - Reason for Consult Consult date: 11/15/18 Stones - History of Present Illness 53-year-old man with a history of GI bleed who presented to the ED on account of 1 week history of passage of black tarry stool with bloody emesis. He has associated generalized abdominal pain, headaches, lightheadedness, pleuritic chest pain, diaphoresis, palpitation, shortness of breath and chills without fever. No constipation, diarrhea, dysuria or frequency. No leg swe lling, orthopnea or PND. In the ED, GI was consulted and he recommended EGD in a.m. He also stated that he can called for emergency EGD if patient's condition deteriorates Patient subsequently had endoscopy with ulcer clipping. Had significant drop in hemoglobin due to GI bleed. CT scan performed to evaluate GI bleed detected multiple renal stones with mild left hydronephrosis. There are multiple nonobstructing renal stones bilaterally which are sizable, and a obstructing left renal stone. Patient reports she has had flank pain intermittently for the last 6 months. He has no distress from the left flank currently. Past History Past Medical History: hypertension, other (GI bleed, exact cause unknown) Past Surgical History: Other (right rotator cuff surgery) Social history: other (patient admits to occasional alcohol use but denies tobacco or illicit drug use) Family history: other (no FH gastric ulcers or gastric malignancy or GI bleeding) Medications and Allergies Allergies Allergy/AdvReac Type Severity Reaction Status Date / Time codeine Allergy Mild Itching Verified 11/14/18 16:09 Home Medications Medication Instructions Recorded Confirmed Last Taken Type Unobtainable 11/14/18 11/14/18 Unknown History Active Meds: Active Medications Acetaminophen (Tylenol) 650 mg PO Q4H PRN PRN Reason: Pain MILD(1-3)/Fever >100.5/SALOMON Last Admin: 11/15/18 07:07 Dose: 650 mg Documented by: Amlodipine Besylate (Norvasc) 10 mg PO QDAY@2200 [facility] Last Admin: 11/14/18 21:38 Dose: 10 mg Documented by: Carvedilol (Coreg) 25 mg PO BID [facility] Last Admin: 11/15/18 10:35 Dose: 25 mg Documented by: Pantoprazole Sodium 80 mg/ (Sodium Chloride) 100 mls @ 10 mls/hr IV DIRECT GALE Stop: 11/15/18 21:59 Last Admin: 11/15/18 09:36 Dose: 8 mg/hr, 10 mls/hr Documented by: Sodium Chloride (Nacl 0.9% 1000 Ml) 1,000 mls @ 50 mls/hr IV DIRECT GALE Last Admin: 11/15/18 07:09 Dose: 50 mls/hr Documented by: Ceftriaxone Sodium (Rocephin/Ns 1 Gm/50 Ml) 1 gm in 50 mls @ 100 mls/hr IV Q24HR GALE; Protocol Last Admin: 11/15/18 10:36 Dose: 100 mls/hr Documented by: Labetalol HCl (Normodyne) 10 mg IV Q4H PRN PRN Reason: Blood Pressure Morphine Sulfate (Morphine) 2 mg IV Q4H PRN PRN Reason: Pain, Moderate (4-6) Last Admin: 11/15/18 10:40 Dose: 2 mg Documented by: Ondansetron HCl (Zofran) 4 mg IV Q8H PRN PRN Reason: Nausea And Vomiting Last Admin: 11/14/18 19:47 Dose: 4 mg Documented by: Pantoprazole Sodium (Protonix) 40 mg PO BID GALE Sodium Chloride (Sodium Chloride Flush Syringe 10 Ml) 10 ml IV BID GALE Last Admin: 11/15/18 10:37 Dose: 10 ml Documented by: Sodium Chloride (Sodium Chloride Flush Syringe 10 Ml) 10 ml IV PRN PRN PRN Reason: LINE FLUSH Zolpidem Tartrate (Ambien) 5 mg PO QHS PRN PRN Reason: Insomnia Review of Systems All systems: negative (see HPI) Exam - Constitutional Vitals: Temp Pulse Resp BP Pulse Ox 98.7 F 67 14 115/70 99 11/15/18 08:00 11/15/18 10:35 11/15/18 10:40 11/15/18 10:35 11/15/18 05:30 General appearance: Present: no acute distress - EENT Eyes: Present: EOM intact ENT: hearing intact - Respiratory Respiratory effort: normal - Abdominal General gastrointestinal: Present: soft, other (nontender flank bilaterally) - Psychiatric Psychiatric: appropriate mood/affect, cooperative Results - Labs CBC & Chem 7: 11/14/18 08:51 03/31/19 21:02 - Imaging and Cardiology CT scan - abdomen: report reviewed, image reviewed CT scan - pelvis: report reviewed, image reviewed Assessment and Plan 53-year-old male who presented with upper GI bleed status post intervention who was incidentally found to have renal calculi with an obstructing left calculi in the ureteropelvic junction. Renal calculi and mild left hydronephrosis appear chronic on CT and the patient currently endorses no signs or symptoms consistent with chronicity. He has been having intermittent left flank pain for greater than 6 months. The patient had a recent upper GI bleed with significant drop in hemoglobin. Given the chronicity of his renal stone findings and no flank pain or symptoms, I do not recommend any intervention at this time given the acuity of his upper GI bleed. Recommend that patient follows up with Dr. Sanabria. Once his hemoglobin improves, then urology will likely perform lithotripsy with or without stenting. If his stones are refractory to lithotripsy, then referral for PCNL can be performed. Do not recommend any intervention currently.
[2018-11-15 13:43] LABS: Hemoglobin 7.8 gm/dl (11.8-15.2); Mean Corpuscular HGB Conc 34 % (32-34); Mean Corpuscular Volume 92 fl (84-94); Platelet Count 161 K/mm3 (140-440); Red Cell Distribution Width 15.2 % (13.2-15.2)
--- NOTE | 2018-11-15 14:43 | Progress Note ---
Assessment and Plan Assessment and plan: 53-year-old man with history of hypertension, history of GI bleed in the past requiring endoscopy call intervention at the current [facility] 6 years ago. He presented complaining of abdominal pain and dark tarry stools. he admitted to taking Goody powder twice a week for chronic headache. Hospital course He was seen by urology and interventional radiology, they evaluated renal calculi and mild left hydronephrosis. Per their evaluation it appeared chronic and he did not recommend any acute intervention. He was recommended for outpatient follow-up with urology upon discharge The patient was found to have acute GI bleed, he was treated with Protonix drip. He was then taken to endoscopy lab. She was noted to have gastric ulcers which were Endo Clip. Biopsies were taken,. The patient completed 48 hours of PPI drip, then switched to oral PPI, and he's been observed to watch for repeat bleeding. Advance diet, tentative discharge tomorrow if no bleeding and if tolerating diet Diagnoses Acute GI bleed due to peptic ulcer Acute blood loss, no anemia Renal calculi with mild left hydronephrosis History Interval history: Review of systems Constitutional: No fevers, no malaise, no joint pains CVS: No chest pain, no orthopnea, no dyspnea on exertion, no pedal edema GI: No abdominal pain, no diarrhea, no vomiting, no constipation Respiratory: No shortness of breath, no wheezing, no coughing Hospitalist Physical - Physical exam Narrative exam: General.: Appears well, no distress, nontoxic HEENT: Moist mucous membranes, extraocular muscles intact, no lymphadenopathy Neck: supple Cardiac: S1-S2 heard Lungs: clear to auscultation bilaterally Abdomen: soft , nontender, nondistended, bowel sounds positive Extremities: no edema clubbing or cyanosis Skin: no rash or lesions Neurologic: no gross focal deficits Psych: calm, and cooperative - Constitutional Vitals: Temp Pulse Resp BP Pulse Ox 98.1 F 66 12 123/77 100 11/15/18 12:00 11/15/18 14:30 11/15/18 14:30 11/15/18 14:30 11/15/18 14:30 General appearance: Present: no acute distress Results - Labs CBC & Chem 7: 11/15/18 13:25 11/13/18 21:02 Labs: Laboratory Last Values WBC 6.8 K/mm3 (4.5-11.0) 11/15/18 13:25 RBC 2.50 M/mm3 (3.65-5.03) L 11/15/18 13:25 Hgb 7.8 gm/dl (11.8-15.2) L 11/15/18 13:25 Hct 23.0 % (35.5-45.6) L 11/15/18 13:25 MCV 92 fl (84-94) 11/15/18 13:25 MCH 31 pg (28-32) 11/15/18 13:25 MCHC 34 % (32-34) 11/15/18 13:25 RDW 15.2 % (13.2-15.2) 11/15/18 13:25 Plt Count 161 K/mm3 (140-440) 11/15/18 13:25 Lymph % (Auto) 20.6 % (13.4-35.0) 11/13/18 21:02 [place] % (Auto) 8.3 % (0.0-7.3) H 11/13/18 21:02 Eos % (Auto) 0.0 % (0.0-4.3) 11/13/18 21:02 Baso % (Auto) 0.4 % (0.0-1.8) 11/13/18 21:02 Lymph # 2.7 K/mm3 (1.2-5.4) 11/13/18 21:02 [place] # 1.1 K/mm3 (0.0-0.8) H 11/13/18 21:02 Eos # 0.0 K/mm3 (0.0-0.4) 11/13/18 21:02 Baso # 0.0 K/mm3 (0.0-0.1) 11/13/18 21:02 Seg Neutrophils % 70.7 % (40.0-70.0) H 11/13/18 21:02 Seg Neutrophils # 9.4 K/mm3 (1.8-7.7) H 11/13/18 21:02 Sodium 144 mmol/L (137-145) 11/13/18 21:02 Potassium 4.4 mmol/L (3.6-5.0) 11/13/18 21:02 Chloride 109.0 mmol/L (98-107) H 11/13/18 21:02 Carbon Dioxide 23 mmol/L (22-30) 11/13/18 21:02 Anion Gap 16 mmol/L 11/13/18 21:02 BUN 46 mg/dL (9-20) H 11/13/18 21:02 Creatinine 1.3 mg/dL (0.8-1.5) 11/13/18 21:02 Estimated GFR > 60 ml/min 11/13/18 21:02 BUN/Creatinine Ratio 35 % 11/13/18 21:02 Glucose 138 mg/dL (75-100) H 11/13/18 21:02 POC Glucose 144 (70-105) H 11/13/18 21:00 Hemoglobin A1c 5.2 % (4-6) 11/14/18 04:44 Calcium 9.6 mg/dL (8.4-10.2) 11/13/18 21:02 Total Bilirubin 0.70 mg/dL (0.1-1.2) 11/13/18 21:02 AST 18 units/L (5-40) 11/13/18 21:02 ALT 17 units/L (7-56) 11/13/18 21:02 Alkaline Phosphatase 53 units/L (35-129) 11/13/18 21:02 Total Protein 7.1 g/dL (6.3-8.2) 11/13/18 21:02 Albumin 4.2 g/dL (3.9-5) 11/13/18 21:02 Albumin/Globulin Ratio 1.4 % 11/13/18 21:02 Lipase 30 units/L (13-60) 11/13/18 21:02 Urine Color Straw (Yellow) 11/14/18 09:25 Urine Turbidity Clear (Clear) 11/14/18 09:25 Urine pH 5.0 (5.0-7.0) 11/14/18 09:25 Ur Specific [place] 1.030 (1.003-1.030) 11/14/18 09:25 Urine Protein <15 mg/dl mg/dL (Negative) 11/14/18 09:25 Urine Glucose (UA) Neg mg/dL (Negative) 11/14/18 09:25 Urine Ketones Neg mg/dL (Negative) 11/14/18 09:25 Urine Blood Mod (Negative) 11/14/18 09:25 Urine Nitrite Neg (Negative) 11/14/18 09:25 Urine Bilirubin Neg (Negative) 11/14/18 09:25 Urine Urobilinogen < 2.0 mg/dL (<2.0) 11/14/18 09:25 Ur Leukocyte Esterase Sm (Negative) 11/14/18 09:25 Urine WBC (Auto) 15.0 /HPF (0.0-6.0) H 11/14/18 09:25 Urine RBC (Auto) 20.0 /HPF (0.0-6.0) 11/14/18 09:25 Urine Bacteria (Auto) 1+ /HPF (Negative) 11/14/18 09:25 Urine Mucus Few /HPF 11/14/18 09:25 Active Medications - Current Medications Current Medications: Generic Name Dose Route Start Last Admin Trade Name Freq PRN Reason Stop Dose Admin Acetaminophen 650 mg 11/13/18 22:35 11/15/18 07:07 Tylenol PO 650 mg Q4H PRN Administration Pain MILD(1-3)/Fever >100.5/SALOMON Amlodipine Besylate 10 mg 11/14/18 00:30 11/14/18 21:38 Norvasc PO 10 mg QDAY@2200 GALE Administration Carvedilol 25 mg 11/13/18 23:00 11/15/18 10:35 Coreg PO 25 mg BID GALE Administration Pantoprazole Sodium 80 mg/ 100 mls @ 10 mls/hr 11/13/18 22:00 11/15/18 09:36 Sodium Chloride IV 11/15/18 21:59 8 mg/hr DIRECT GALE 10 mls/hr Administration 8 MG/HR Sodium Chloride 1,000 mls @ 50 mls/hr 11/14/18 07:00 11/15/18 07:09 Nacl 0.9% 1000 Ml IV 50 mls/hr DIRECT GALE Administration Ceftriaxone Sodium 1 gm in 50 mls @ 100 mls/hr 11/15/18 10:00 11/15/18 10:36 Rocephin/Ns 1 Gm/50 Ml IV 100 mls/hr Q24HR GALE Administration Protocol Labetalol HCl 10 mg 11/13/18 22:41 Normodyne IV Q4H PRN Blood Pressure Morphine Sulfate 2 mg 11/13/18 22:35 11/15/18 10:40 Morphine IV 2 mg Q4H PRN Administration Pain, Moderate (4-6) Ondansetron HCl 4 mg 11/13/18 22:35 11/14/18 19:47 Zofran IV 4 mg Q8H PRN Administration Nausea And Vomiting Pantoprazole Sodium 40 mg 11/16/18 10:00 Protonix PO BID GALE Sodium Chloride 10 ml 11/14/18 10:00 11/15/18 10:37 Sodium Chloride Flush Syringe 10 Ml IV 10 ml BID GALE Administration Sodium Chloride 10 ml 11/13/18 22:35 Sodium Chloride Flush Syringe 10 Ml IV PRN PRN LINE FLUSH Zolpidem Tartrate 5 mg 11/13/18 22:35 Ambien PO QHS PRN Insomnia Nutrition/Malnutrition Assess - Dietary Evaluation Nutrition/Malnutrition Findings: Nutrition Notes Start: 11/14/18 15:46 Freq: Status: Active Protocol: Document 11/14/18 15:46 OL (Rec: 11/14/18 15:47 OL [id number]) Nutrition Notes 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 Ervin 23. Error. Nutrition Intervention Revisit per MD consult or patient Sign Off request:
--- NOTE | 2018-11-15 16:11 | Gastroenterology Progress Note ---
Assessment and Plan # Upper GI bleed with melena - s/p EGD showing gastric ulcer with one moderately cratered with red raised lesion suspicious for a visible vessel s/p endoclip placement. - H/H stable. No overt signs of active recurrent bleeding. Rec: - monitor H/H. - can switch to PPI PO bid tomorrow. - ok for discharge tomorrow if no signs of over recurrent bleeding and H/H stable. - follow up in GI clinic in 2-3 weeks for repeat EGD to be set up for 6-8 weeks to ensure ulcer healing. - will sign off at this time. Please call back with questions. Subjective Date of service: 11/15/18 Principal diagnosis: UGI bleeding, SIRS, HTN Interval history: s/p EGD showing incisura ulcers s/p clip placement. No BM overnight. Tolerated diet. No nausea/vomiting. Objective - Constitutional Vitals: Temp Pulse Resp BP Pulse Ox 98.1 F 66 12 123/77 100 11/15/18 12:00 11/15/18 14:30 11/15/18 14:30 11/15/18 14:30 11/15/18 14:30 - EENT ENT: hearing intact, clear oral mucosa, dentition normal - Neck Neck: supple, normal ROM - Respiratory Respiratory effort: normal Respiratory: bilateral: CTA - Cardiovascular Rhythm: regular - Extremities Extremities: pulses intact, No edema, normal color, Full ROM - Gastrointestinal General gastrointestinal: Present: soft, non-tender, non-distended, normal bowel sounds - Integumentary Integumentary: Present: clear, warm, dry - Neurologic Neurological: alert and oriented x3 - Labs CBC & Chem 7: 11/15/18 13:25 11/13/18 21:02 Labs: Laboratory Results - last 24 hr 11/15/18 13:25 WBC 6.8 RBC 2.50 L Hgb 7.8 L Hct 23.0 L MCV 92 MCH 31 MCHC 34 RDW 15.2 Plt Count 161
[2018-11-15] MEDS: NORVASC PO SCH (22:32)
[2018-11-16] MEDS: MORPHINE IV PRN ×2 (05:56→11:13)
--- NOTE | 2018-11-16 09:03 | Discharge Summary ---
Providers - Providers Date of Admission: 11/13/18 23:06 Attending physician: HUGH CHANCE MD 11/13/18 22:08 Consult to Physician [CONS] Stat Comment: Dr. Oden spoke with Dr. 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 Multiple nonobstructive bilateral renal calculi. L5-S1 spondylolysis lysis Labs show a drop of hemoglobin from 11-7.8 UTI Hospital course: 53-year-old man with history of hypertension, history of GI bleed in the past requiring endoscopy call intervention at the [facility] 6 years ago. He presented complaining of abdominal pain and dark tarry stools. he admitted to taking Goody powder twice a week for chronic headache. Hospital course He was seen by urology and interventional radiology, they evaluated renal calculi and mild left hydronephrosis. Per their evaluation it appeared chronic and he did not recommend any acute intervention. He was recommended for outpatient follow-up with urology upon discharge The patient was found to have acute GI bleed, he was treated with Protonix drip. He was then taken to endoscopy lab. She was noted to have gastric ulcers which were Endo Clip. Biopsies were taken,. The patient completed 48 hours of PPI drip, then he was switched to oral PPI twice a day, his diet was advanced. He had no further melena, hemoglobin was stable, therefore he was discharged -His blood pressure medications also optimized for hypertensive urgency Diagnoses Acute GI bleed due to peptic ulcer Acute blood loss anemia, did not require transfusion Renal calculi with mild left hydronephrosis Hypertensive urgency Disposition: TO HOME OR SELFCARE Time spent for discharge: 33 minutes Core Measure Documentation - Palliative Care Palliative Care/ Comfort Measures: Not Applicable - Core Measures Any of the following diagnoses?: none Exam - Constitutional Vitals: Temp Pulse Resp BP Pulse Ox 98.4 F 67 12 137/80 97 11/16/18 04:00 11/16/18 06:10 11/16/18 06:10 11/16/18 06:10 11/16/18 06:10 General appearance: Present: no acute distress, well-nourished - EENT Eyes: Present: PERRL ENT: hearing intact, clear oral mucosa - Neck Neck: Present: supple, normal ROM - Respiratory Respiratory effort: normal Respiratory: bilateral: CTA - Cardiovascular Heart Sounds: Present: S1 & S2. Absent: rub, click - Extremities Extremities: pulses symmetrical, No edema Peripheral Pulses: within normal limits - Abdominal General gastrointestinal: Present: soft, non-tender, non-distended, normal bowel sounds Male genitourinary: Present: normal - Integumentary Integumentary: Present: clear, warm, dry - Musculoskeletal Musculoskeletal: gait normal, strength equal bilaterally - Psychiatric Psychiatric: appropriate mood/affect, intact judgment & insight - Neurologic Neurologic: CNII-XII intact, moves all extremities Plan Follow up with: RON BRUCE MD [Primary Care Provider] - 7 Days Forms: Accompanied Note Prescriptions: Lisinopril 20 mg PO DAILY #30 tablet amLODIPine [Norvasc] 10 mg PO QDAY@2200 #30 tablet Pantoprazole [Protonix TAB] 40 mg PO BID #60 tablet
[2018-11-16] MEDS: ROCEPHIN/NS 1 GM/50 ML 1 GM/50 ML BAG IV SCH (09:31)
[2018-11-16] MEDS: COREG PO SCH (09:32)
[2018-11-16] MEDS: SODIUM CHLORIDE FLUSH SYRINGE 10 ML IV SCH (09:32)
[2018-11-16] MEDS ORDERED: PROTONIX PO SCH (10:00)
[2018-11-16 10:39] VITALS: BP 127/70
== END 2018-11-16 12:30 | disposition home or self-care (01) | DRG 378 ==
LOC: ED 20:02 → 3A 23:06 → IMCU 23:14
PROVIDERS: ADMIT Internal Medicine; ATTEND Internal Medicine
PROC: 0DB68ZX Excision of Stomach, Via Natural or Artificial Opening Endoscopic, Diagnostic (ICD-10-PCS; principal; 2018-11-14)
PROC: 0W3P8ZZ Control Bleeding in Gastrointestinal Tract, Via Natural or Artificial Opening Endoscopic (ICD-10-PCS; 2018-11-14)
DX: K27.0 Acute peptic ulcer, site unspecified, with hemorrhage (principal); R65.10 Systemic inflammatory response syndrome (SIRS) of non-infectious origin without acute organ dysfunction; N13.6 Pyonephrosis; D62 Acute posthemorrhagic anemia; Z88.6 Allergy status to analgesic agent; I10 Essential (primary) hypertension; R73.9 Hyperglycemia, unspecified; I16.0 Hypertensive urgency
CPT/HCPCS: 36415; 74177; 80053; 81001; 82962; 83036; 83690; 85014; 85018; 85025; 85027; 87086; 88305; 88342; 93005; 93010; 96374; 96375; G0378; C9113; J0696; J2270; J2405; J2704; J7030; Q9967

== ENCOUNTER 2020-07-02 03:39 | Emergency (ER) | payer OTHER ==
--- NOTE | 2020-07-02 04:35 | XRay Report ---
CHEST 1 VIEW 07/02/2020 4:29 AM INDICATION / CLINICAL INFORMATION: Chest Pain. COMPARISON: None available. FINDINGS: SUPPORT DEVICES: None. HEART / MEDIASTINUM: No significant abnormality. LUNGS / PLEURA: No significant pulmonary or pleural abnormality. No pneumothorax. ADDITIONAL FINDINGS: No significant additional findings. IMPRESSION: 1. No acute findings. Signer Name: Gonsalo Elizabeth MD Signed: 07/02/2020 4:31 AM Workstation Name: [id number]
[2020-07-02 05:07] LABS: BUN/Creatinine Ratio 9; Blood Urea Nitrogen 11 mg/dL (9-20); Calcium 10.4 mg/dL (8.4-10.2); Hemolysis Index 8
[2020-07-02 05:16] LABS: Basophils % (Auto) 0.6 % (0.0-1.8); Eosinophils # (Auto) 0.1 K/mm3 (0.0-0.4); Eosinophils % (Auto) 0.7 % (0.0-4.3); Hematocrit 42.1 % (35.5-45.6); Hemoglobin 14.4 gm/dl (11.8-15.2); Lymphocytes # (Auto) 2.2 K/mm3 (1.2-5.4); Lymphocytes % (Auto) 27.4 % (13.4-35.0); Mean Corpuscular HGB Conc 34 % (32-34); Mean Corpuscular Volume 86 fl (84-94); Monocytes # (Auto) 0.7 K/mm3 (0.0-0.8); Monocytes % (Auto) 8.7 % (0.0-7.3); Platelet Count 260 K/mm3 (140-440); Red Blood Count 4.91 M/mm3 (3.65-5.03); Red Cell Distribution Width 16.9 % (13.2-15.2)
[2020-07-02] MEDS ORDERED: IBUPROFEN 600 MG TAB PO ONE ×2 (10:59→11:03)
[2020-07-02] MEDS ORDERED: hydrALAZINE 20 MG/1 ML INJ IV ONE (11:26)
[2020-07-02] MEDS ORDERED: IPRATROPIUM/ALBUTEROL SULFATE 3 ML AMPUL.NEB IH ONE (11:26)
--- NOTE | 2020-07-02 11:30 | Emergency Department Report ---
ED Chest Pain HPI - General Chief Complaint: Chest Pain Stated Complaint: SHORTNESS OF BREATH, AND CHEST PAIN Time Seen by Provider: 07/02/20 11:10 Source: patient Mode of arrival: Ambulatory Limitations: No Limitations - History of Present Illness Initial Comments: This is a 54-year-old male who presents to the emergency department with a complaint of a 24-hour history of shortness of breath and some previous chest pain that has since resolved. Patient says that the shortness of breath has been intermittent and mostly occurs when he is exerting himself. The chest pain was generalized but has since resolved. The patient took a baby aspirin last night. He presents with elevated blood pressure despite compliance with his irbesartan and amlodipine. He does have a past medical history of hypertension and peptic ulcer disease. 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 He denies any tobacco or illicit drug use. No recent travel or sick contacts at home. Severity scale (0 -10): 6 - Related Data Home Medications Medication Instructions Recorded Confirmed Last Taken Irbesartan [Avapro] 150 mg PO QDAY 07/02/20 07/02/20 Unknown Previous Rx's Medication Instructions Recorded Last Taken Type Pantoprazole [Protonix TAB] 40 mg PO BID #60 tablet 11/16/18 Unknown Rx amLODIPine 10 mg PO QDAY@2200 #30 tablet 11/16/18 Unknown Rx Albuterol Mdi (or & Nicu Only) 2 puff IH QID PRN #8.5 gram 07/02/20 Unknown Rx [ProAir HFA Inhaler] Allergies Allergy/AdvReac Type Severity Reaction Status Date / Time codeine Allergy Mild Itching Verified 07/02/20 11:14 Heart Score - HEART Score History: Slightly suspicious EKG: Normal Age: 45-65 Risk factors: 1-2 risk factors Troponin: < normal limit HEART Score: 2 - Critical Actions Critical Actions: 0-3 pts:0.9-1.7%risk of adverse cardiac event.Candidate for discharge ED Review of Systems ROS: Stated complaint: SHORTNESS OF BREATH, AND CHEST PAIN Other details as noted in HPI Comment: All other systems reviewed and negative Constitutional: denies: chills, fever Eyes: denies: eye pain, vision change ENT: denies: ear pain, throat pain Respiratory: shortness of breath, SOB with exertion. denies: cough Cardiovascular: chest pain (resolved). denies: palpitations, edema Gastrointestinal: denies: abdominal pain, vomiting Genitourinary: denies: dysuria, discharge Musculoskeletal: denies: back pain, arthralgia Skin: denies: rash, lesions Neurological: denies: headache, weakness ED Past Medical Hx - Past Medical History Previous Medical History?: Yes Hx Hypertension: Yes Hx Heart Attack/AMI: No Hx Congestive Heart Failure: No Hx Diabetes: No Hx Liver Disease: No Hx Sickle Cell Disease: No Hx Asthma: No Hx COPD: No Hx HIV: No Additional medical history: stomach ulcer / back pain - Surgical History Past Surgical History?: Yes Additional Surgical History: left shoulder, abdominal surgery. - Social History Smoking Status: Former Smoker Substance Use Type: None - Medications Home Medications: Home Medications Medication Instructions Recorded Confirmed Last Taken Type Pantoprazole [Protonix TAB] 40 mg PO BID #60 tablet 11/16/18 07/02/20 Unknown Rx amLODIPine 10 mg PO QDAY@2200 #30 tablet 11/16/18 07/02/20 Unknown Rx Albuterol Mdi (or & Nicu Only) 2 puff IH QID PRN #8.5 gram 07/02/20 Unknown Rx [ProAir HFA Inhaler] Irbesartan [Avapro] 150 mg PO QDAY 07/02/20 07/02/20 Unknown History ED Physical Exam - General Limitations: No Limitations - Other Other exam information: GENERAL: The patient is well-developed well-nourished. HENT: Normocephalic. Atraumatic. Patient has moist mucous membranes. EYES: Extraocular motions are intact. NECK: Supple. Trachea is midline. CHEST/LUNGS: Clear to auscultation. There is no respiratory distress noted. HEART/CARDIOVASCULAR: Regular. There is no tachycardia. There is no murmur. ABDOMEN: Abdomen is soft, nontender. Patient has normal bowel sounds. SKIN: Skin is warm and dry. NEURO: The patient is awake, alert, and oriented. The patient is cooperative. The patient has no focal neurologic deficits. Normal speech. MUSCULOSKELETAL: There is no tenderness or deformity. There is no limitation range of motion. ED Course Vital Signs 07/02/20 07/02/20 07/02/20 03:49 08:00 11:15 Temperature 98.4 F Pulse Rate 111 H 104 H 97 H Pulse Rate [ Bilateral Throughout] Respiratory 17 18 15 Rate Respiratory Rate [Bilateral Throughout] Blood Pressure 178/113 185/113 Blood Pressure 179/109 [Right] O2 Sat by Pulse 97 98 98 Oximetry 07/02/20 07/02/20 07/02/20 11:30 11:49 12:16 Temperature Pulse Rate 91 H 111 H Pulse Rate [ 87 Bilateral Throughout] Respiratory 17 16 Rate Respiratory 17 Rate [Bilateral Throughout] Blood Pressure 171/114 163/106 Blood Pressure [Right] O2 Sat by Pulse 95 95 Oximetry 07/02/20 07/02/20 07/02/20 12:45 13:16 13:45 Temperature Pulse Rate 99 H 90 84 Pulse Rate [ Bilateral Throughout] Respiratory 16 14 20 Rate Respiratory Rate [Bilateral Throughout] Blood Pressure 199/116 191/116 133/89 Blood Pressure [Right] O2 Sat by Pulse 95 95 88 Oximetry 07/02/20 14:15 Temperature Pulse Rate 81 Pulse Rate [ Bilateral Throughout] Respiratory 14 Rate Respiratory Rate [Bilateral Throughout] Blood Pressure 164/105 Blood Pressure [Right] O2 Sat by Pulse 90 Oximetry CAIO score - Caio Score Age > 65: (0) No Aspirin use within the Past 7 Days: (1) Yes 3 or more CAD Risk Factors: (0) No 2 or more Angina events in past 24 hrs: (1) Yes Known CAD with more than 50% Stenosis: (0) No Elevated Cardiac Markers: (0) No ST Deviation Greater than 0.5mm: (0) No CAIO Score: 2 ED Medical Decision Making - Lab Data Result diagrams: 07/02/20 04:13 07/02/20 04:13 - EKG Data -: EKG Interpreted by Me EKG shows normal: sinus rhythm, axis, intervals, QRS complexes, ST-T waves Rate: normal - EKG Data When compared to previous EKG there are: no significant change, previous EKG unavailable Interpretation: normal EKG, unchanged when compared t (11/13/2018) - Radiology Data Radiology results: image reviewed interpreted by me: Chest x-ray does not show any acute process. There are no pleural effusions, obvious pneumonia and there is no pneumothorax. No significant cardiomegaly. - Medical Decision Making This patient presents to the emergency department with a complaint of a 24-hour history of some shortness of breath and some previous chest pain that has since resolved. On examination he has normal heart and lung sounds to auscultation but does not appear in any respiratory or acute distress. EKG did not have any morphology consistent with ST elevation myocardial infarction or any significant dysrhythmia. Chest x-ray does not show any pneumonia, pneumothorax, pleural effusions, or any other acute process. Patient's labs have been unremarkable including CBC, metabolic panel, negative troponins x3 and a negative D-dimer. Patient does have some elevated blood pressure despite his compliance with irbesartan and amlodipine. He was given 2 different doses of antihypertensive medication and was given a dose of Valium for the complaints of some muscle cramping. The blood pressure came down to a much more reasonable level. Patient has a low heart and CAIO score. He appears safe for discharge home at this time. His contact information has been sent over to the [facility] [place], and someone from their office should be contacting him shortly for close outpatient follow-up as per our [facility] low risk chest pain protocol. He has also been given some referrals for primary care physicians. He will return to the emergency department with any worsening of his symptoms or with any acute distress. Critical Care Time: No Critical care attestation.: If time is entered above; I have spent that time in minutes in the direct care of this critically ill patient, excluding procedure time. ED Disposition Clinical Impression: Chest pain Qualifiers: Chest pain type: unspecified Qualified Code(s): R07.9 - Chest pain, unspecified Dyspnea Qualifiers: Dyspnea type: shortness of breath Qualified Code(s): R06.02 - Shortness of breath; R06.00 - Dyspnea, unspecified; R06.01 - Orthopnea Hypertension Qualifiers: Hypertension type: essential hypertension Qualified Code(s): I10 - Essential (primary) hypertension Disposition: DC-01 TO HOME OR SELFCARE Is pt being admited?: No Condition: Stable Instructions: Nonspecific Chest Pain, Adult, Shortness of Breath, Adult, Hypertension, Adult, Chest Pain (ED), Hypertension (ED) Additional Instructions: Please follow-up with a primary care physician in the next few days. I am giving you multiple referrals for primary care physicians and clinics in the area. I have sent your contact information over to the [facility] and [facility] [place], and someone from their office should be contacting you shortly for close outpatient follow-up. 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 Ridley. Take your medications as prescribed. Please try and stay away from foods that are high in salt and caffeinated products. Keep a blood pressure log. Return to the emergency department with any worsening of your symptoms, new or concerning symptoms not addressed during this current emergency department visit, or with any acute distress. Prescriptions: Albuterol Mdi (or & Nicu Only) [ProAir HFA Inhaler] 2 puff IH QID PRN #8.5 gram PRN Reason: Shortness Of Breath Referrals: PRIMARY CARE, [Primary Care Provider] - 3-5 Days NELLI BAY MD [Staff Physician] - 3-5 Days ODALIS RIDLEY MD [Staff Physician] - 3-5 Days NETTA FULTON MD [Staff Physician] - 3-5 Days [facility] [Provider Group] - 3-5 Days Forms: Work/School Release Form(ED) Time of Disposition: 14:11
[2020-07-02] MEDS ORDERED: hydrALAZINE 20 MG/1 ML INJ IV SCH (12:00)
[2020-07-02] MEDS ORDERED: diazePAM 10 MG/2 ML SYRINGE IV ONE (13:10)
[2020-07-02 14:25] VITALS: BP 164/105
== END 2020-07-02 14:46 | disposition home or self-care (01) ==
LOC: ED 03:39
DX: I10 Essential (primary) hypertension (principal); R06.00 Dyspnea, unspecified; R07.9 Chest pain, unspecified; Z88.6 Allergy status to analgesic agent; Z79.899 Other long term (current) drug therapy; Z87.891 Personal history of nicotine dependence; Z98.890 Other specified postprocedural states
CPT/HCPCS: 36415; 71045; 80048; 84484; 85025; 85379; 93005; 94640; 96374; 96375; 99284; J0360; J3360; 94644